=== PATIENT | female | born 1975 | race African-American/Black ===

== ENCOUNTER 2019-02-19 10:57 | Emergency (ER) | payer MEDICAID ==
[2019-02-19 11:18] VITALS: BP 134/80
--- NOTE | 2019-02-19 11:29 | ED Physician Documentation ---
PD HPI SKIN - Stated complaint Stated Complaint: WOUND ON ABD - Chief complaint Chief Complaint: Wound - History obtained from History obtained from: Patient - History of Present Illness Timing - onset: How many days ago (4) Timing - duration: Days (4) Timing - details: Gradual onset, Still present (started draining 2 days ago but still hurting and swollen/red) Location: Abdomen Quality / character: Painful, Discolored (red), Swelling, Draining (for 2 days) Associated symptoms: Myalgias. No: Fever, N/V/D Contributing factors: No: Insect bite /sting, Recent illness Similar symptoms before: Has not had sx before Recently seen: Not recently seen Review of Systems Constitutional: reports: Myalgias. denies: Fever, Chills Nose: denies: Rhinorrhea / runny nose, Congestion Throat: denies: Sore throat Respiratory: denies: Cough GI: denies: Nausea, Vomiting, Diarrhea Skin: reports: Lesions (just the one on the lower abd) PD PAST MEDICAL HISTORY - Past Medical History Past Medical History: Yes Cardiovascular: Hypertension - Past Surgical History Past Surgical History: No - Present Medications Home Medications: Ambulatory Orders Medication Instructions Recorded Confirmed Hydrocodone/Acetaminophen [[place] 1 each PO Q6H PRN #15 tablet 02/19/19 5-325 Tablet] Lidocaine HCl [Lidocaine Plus] 1 applic TP Q2H PRN #15 cream..g. 02/19/19 Mupirocin 1 applic TP TID #15 g 02/19/19 Sulfamethox/Trimeth 800/160 1 each PO BID #14 tablet 02/19/19 [Bactrim Ds 800/160] - Allergies Allergies/Adverse Reactions: Allergies Allergy/AdvReac Type Severity Reaction Status Date / Time No Known Drug Allergies Allergy Verified 02/19/19 11:06 - Social History Does the pt smoke?: No Smoking Status: Never smoker Does the pt drink ETOH?: No Does the pt have substance abuse?: No - Immunizations Immunizations are current?: Yes - POLST Patient has POLST: No PD ED PE NORMAL - Vitals Vital signs reviewed: Yes - General General: Alert and oriented X 3, Well developed/nourished - Cardiac Cardiac: RRR, No murmur - Respiratory Respiratory: Clear bilaterally - Abdomen Abdomen: Normal bowel sounds, Soft, Non distended, No organomegaly, Other (tender in skin and subcut level on lowera bdomen below a skin fold of pannus, with area of induration and small 3-4 mm opening and surrounding redness. No purulence at this time. U/S bedside did not show significant fluid coollection (3 mm sized area). There is inflammation and swelling in the area around the lesion. The surrounding 3-4 cm show area of induration and redness with tenderness. ) Results - Vitals Vitals: Vital Signs - 24 hr 02/19/19 11:04 Temperature 36.5 C Heart Rate 70 Respiratory 16 Rate Blood Pressure 134/80 H O2 Saturation 100 Oxygen O2 Source Room air Departure - Departure Disposition: Home, Self Care Clinical Impression: Cutaneous abscess of abdominal wall Condition: Stable Record reviewed to determine appropriate education?: Yes Instructions: ED Staph Infec Abx Tx Only Prescriptions: Hydrocodone/Acetaminophen [[place] 5-325 Tablet] 1 each PO Q6H PRN #15 tablet PRN Reason: Pain Lidocaine HCl [Lidocaine Plus] 1 applic TP Q2H PRN #15 cream..g. PRN Reason: Pain Mupirocin 1 applic TP TID #15 g Sulfamethox/Trimeth 800/160 [Bactrim Ds 800/160] 1 each PO BID #14 tablet Comments: The abscess appears to be draining adequately to just treat the infection of the tissue and not have to drain it further. Allow it to keep draining on its own. Cleanse the area 2-3 times a day with soap and water and apply mupirocin antibiotic ointment and can also apply lidocaine cream to help with the pain. Use ibuprofen 2-3 times a day and add Tylenol or hydrocodone as needed for pain. Bactrim antibiotic orally for the next week to help with the infection. Recheck if not improving well over the next few days and it should be better within several days to week. Discharge Date/Time: 02/19/19 12:18
[2019-02-19] MEDS ORDERED: SULFAMETH/TRIMETH DS 800/160 MG TABLET PO STA (11:55)
[2019-02-19] MEDS ORDERED: MUPIROCIN 2% OINT 1 GM TOP STA (11:55)
[2019-02-19] MEDS ORDERED: HYDROcod/ACETAM 5/325 MG TABLET PO STA (11:55)
[2019-02-19] MEDS ORDERED: LIDOCAINE JELLY 2% 5 ML TUBE TOP STA (11:55)
== END 2019-02-19 12:18 | disposition home or self-care (01) ==
LOC: ED 10:57
DX: L02.211 Cutaneous abscess of abdominal wall (principal); I10 Essential (primary) hypertension
CPT/HCPCS: 99283; A9270; J3490

== ENCOUNTER 2019-07-06 17:30 | Emergency (ER) | payer MEDICAID ==
[2019-07-06 18:09] LABS: BASOPHILS % (AUTO) 1.1 %; EOSINOPHILS % (AUTO) 0.6 %; HGB - HEMOGLOBIN 13.1 g/dL (12.0-16.0); LYMPHOCYTES # (AUTO) 1.5 10^3/uL (1.5-3.5); LYMPHOCYTES % (AUTO) 42.5 %; MEAN CORPUSCULAR HGB CONC 34.4 g/dL (32.0-36.0); MEAN CORPUSCULAR VOLUME 90.3 fL (81.0-99.0); MEAN PLATELET VOLUME 9.9 fL (7.9-10.8); MONOCYTES # (AUTO) 0.3 10^3/uL (0.0-1.0); MONOCYTES % (AUTO) 8.3 %; NEUTROPHILS # (AUTO) 1.7 10^3/uL (1.5-6.6); NEUTROPHILS % (AUTO) 47.2 %; PLT - PLATELET COUNT 361 10^3/uL (130-450); RED BLOOD COUNT 4.22 10^6/uL (4.20-5.40); WHITE BLOOD COUNT 3.5 x10^3/uL (4.8-10.8)
[2019-07-06 18:12] LABS: ALBUMIN/GLOBULIN RATIO 1.1 (1.0-2.2); BILIRUBIN,TOTAL 1.1 mg/dL (0.2-1.0); CALCIUM 8.6 mg/dL (8.5-10.3); CREATININE 0.8 mg/dL (0.4-1.0); TOTAL PROTEIN 7.8 g/dL (6.7-8.2)
[2019-07-06] MEDS ORDERED: ONDANSETRON ODT 4 MG TABLET TL STA (18:23)
[2019-07-06] MEDS ORDERED: MAG HYDROX/AL HYDROX/SIMETH 30 ML UDC PO STA (18:23)
[2019-07-06] MEDS ORDERED: LIDOCAINE VISCOUS 2% 15 ML UDC MM STA (18:23)
[2019-07-06] MEDS ORDERED: KETOROLAC 30 MG/ML VIAL IVP STA (18:24)
[2019-07-06] MEDS ORDERED: ONDANSETRON 4 MG/2 ML VIAL IVP STA (18:25)
[2019-07-06] MEDS ORDERED: ASPIRIN CHEW 81 MG TABLET PO STA (18:25)
--- NOTE | 2019-07-06 18:25 | ED Physician Documentation ---
PD HPI CHEST PAIN - Stated complaint Stated Complaint: CP, N/V - Chief complaint Chief Complaint: Cardiac - History obtained from History obtained from: Patient - History of Present Illness Timing - onset: Other (2 days ago she started with sharp anterior right sided nonradiating chest pain she started having some nausea and vomiting. She felt like it was gas at first but now is more constant. She is never had this before. Her mom had some heart problems but not until she was in her 70s. Denies shortness of breath.) Review of Systems Ten Systems: 10 systems reviewed and negative Constitutional: reports: Sweats. denies: Fever, Chills Nose: denies: Rhinorrhea / runny nose, Congestion Cardiac: denies: Palpitations, Pedal edema, Calf pain Respiratory: denies: Dyspnea, Cough GI: denies: Abdominal Pain PD PAST MEDICAL HISTORY - Past Medical History Cardiovascular: Hypertension - Past Surgical History Past Surgical History: No - Present Medications Home Medications: Ambulatory Orders Medication Instructions Recorded Confirmed Hydrocodone/Acetaminophen [[place] 1 each PO Q6H PRN #15 tablet 02/19/19 5-325 Tablet] Lidocaine HCl [Lidocaine Plus] 1 applic TP Q2H PRN #15 cream..g. 02/19/19 Mupirocin 1 applic TP TID #15 g 02/19/19 Sulfamethox/Trimeth 800/160 1 each PO BID #14 tablet 02/19/19 [Bactrim Ds 800/160] Ibuprofen [Motrin] 800 mg PO Q8H PRN #30 tablet 07/06/19 Ondansetron Odt [Zofran] 4 mg TL Q6H PRN #10 tablet 07/06/19 - Allergies Allergies/Adverse Reactions: Allergies Allergy/AdvReac Type Severity Reaction Status Date / Time No Known Drug Allergies Allergy Verified 02/19/19 11:06 - Social History Does the pt smoke?: No Smoking Status: Never smoker Does the pt drink ETOH?: No Does the pt have substance abuse?: No - Family History Family history: reports: Non contributory - Immunizations Immunizations are current?: Yes - POLST Patient has POLST: No PD ED PE NORMAL - Vitals Vital signs reviewed: Yes - General General: Alert and oriented X 3 (She appears uncomfortable and retching) - HEENT HEENT: PERRL, EOMI - Neck Neck: Supple, no meningeal sign, No bony TTP - Cardiac Cardiac: RRR, No murmur - Respiratory Respiratory: No respiratory distress, Clear bilaterally - Abdomen Abdomen: Non tender - Back Back: No CVA TTP, No spinal TTP - Derm Derm: Normal color, Warm and dry - Extremities Extremities: No edema, No calf tenderness / cord - Neuro Neuro: Alert and oriented X 3, Normal speech Results - Vitals Vitals: Vital Signs - 24 hr 07/06/19 07/06/19 17:41 19:41 Temperature 37.3 C 36.9 C Heart Rate 76 56 L Respiratory 18 13 Rate Blood Pressure 181/128 H 154/101 H O2 Saturation 100 100 Oxygen O2 Source Room air - EKG (time done) 1742 Rate: Rate (enter#) (68) Rhythm: NSR [place]: Normal Intervals: Normal MA QRS: Normal Ischemia: Normal ST segments Computer interpretation: Agree with computer - Labs Labs: Laboratory Tests 07/06/19 07/06/19 07/06/19 17:54 17:54 17:54 WBC 3.5 L RBC 4.22 Hgb 13.1 Hct 38.1 MCV 90.3 MCH 31.0 MCHC 34.4 RDW 15.0 Plt Count 361 MPV 9.9 Neut # (Auto) 1.7 Lymph # (Auto) 1.5 [place] # (Auto) 0.3 Eos # (Auto) 0.0 Baso # (Auto) 0.0 Absolute Nucleated RBC 0.00 Nucleated RBC % 0.0 D-Dimer Sodium 140 Potassium 3.3 L Chloride 106 Carbon Dioxide 26 Anion Gap 8.0 BUN 16 Creatinine 0.8 Estimated GFR (MDRD) 95 Glucose 122 H Calcium 8.6 Total Bilirubin 1.1 H AST 23 ALT 18 Alkaline Phosphatase 51 Troponin I High Sens 3.0 Total Protein 7.8 Albumin 4.0 Globulin 3.8 Albumin/Globulin Ratio 1.1 Lipase 21 L 07/06/19 17:54 WBC RBC Hgb Hct MCV MCH MCHC RDW Plt Count MPV Neut # (Auto) Lymph # (Auto) [place] # (Auto) Eos # (Auto) Baso # (Auto) Absolute Nucleated RBC Nucleated RBC % D-Dimer 280.2 H Sodium Potassium Chloride Carbon Dioxide Anion Gap BUN Creatinine Estimated GFR (MDRD) Glucose Calcium Total Bilirubin AST ALT Alkaline Phosphatase Troponin I High Sens Total Protein Albumin Globulin Albumin/Globulin Ratio Lipase PD MEDICAL DECISION MAKING - ED course ED course: 43-year-old woman presents with atypical right-sided chest pain, ACS fairly unlikely given the right lack of risk factors, normal EKG, negative high- sensitivity troponin. D-dimer was slightly positive followed by CT angiography which was negative. Departure - Departure Disposition: 01 Home, Self Care Clinical Impression: Chest wall pain Condition: Good Record reviewed to determine appropriate education?: Yes Instructions: ED Chest Pain Atypical Unkn Cause Prescriptions: Ibuprofen [Motrin] 800 mg PO Q8H PRN #30 tablet PRN Reason: PAIN &/OR FEVER Ondansetron Odt [Zofran] 4 mg TL Q6H PRN #10 tablet PRN Reason: Nausea / Vomiting Comments: Call your doctor to arrange a follow-up appointment, make the next available appointment. In the interim, return anytime if worse or if new symptoms develop. Your blood pressure was elevated today on check into the emergency department. This does not mean that you have hypertension, it is a common phenomenon to come to the emergency department and have elevated blood pressure. I recommend that you see your primary care physician within the week to have it rechecked when you are feeling better.
--- NOTE | 2019-07-06 19:16 | XRAY Report ---
Reason: chest pain Procedure Date: 07/06/2019 Accession Number: [id number] / [id number] Procedure: XR - Chest 2 View X-Ray CPT Code: 39989 Final Report FULL RESULT: EXAM: CHEST RADIOGRAPHY EXAM DATE: 07/06/2019 06:44 PM. CLINICAL HISTORY: Chest pain. COMPARISON: None. TECHNIQUE: 2 views. FINDINGS: Lungs/Pleura: No focal opacities evident. No pleural effusion. No pneumothorax. Normal volumes. Mediastinum: Heart and mediastinal contours are unremarkable. Other: None. IMPRESSION: Normal 2-view chest radiography. RADIA
[2019-07-06] MEDS ORDERED: IOVERSOL 320 100 ML VIAL IVP ONE ×2 (19:55→21:10)
--- NOTE | 2019-07-06 20:35 | CT Report ---
Reason: PE protocol, CP high dimer Procedure Date: 07/06/2019 Accession Number: [id number] / [id number] Procedure: CT - ANGIO CHEST W/WO CPT Code: Final Report FULL RESULT: EXAM: CT ANGIOGRAM CHEST EXAM DATE: 07/06/2019 08:09 PM. CLINICAL HISTORY: PE protocol, CP high dimer. COMPARISON: None. TECHNIQUE: Routine helical imaging was performed through the chest in the pulmonary arterial phase. IV Contrast: CE. Reconstructions: Coronal 3-D MIP reconstructions.Sagittal and coronal. In accordance with CT protocol optimization, one or more of the following dose reduction techniques were utilized for this exam: automated exposure control, adjustment of mA and/or KV based on patient size, or use of iterative reconstructive technique. FINDINGS: Pulmonary Arteries: Diagnostic quality: Adequate through the segmental arteries. No evidence for acute or chronic pulmonary emboli. RV/LV is within normal limits. There is no interventricular septal bowing. There is no reflux of contrast material in the IVC. Lungs/Pleura: No consolidation, nodules, or edema. No effusions or pneumothorax. Mediastinum: Normal. No cardiac enlargement or adenopathy. Thoracic Aorta: Unremarkable. Upper Abdomen: A subcentimeter hypodense lesions in the right lobe of liver, too small to characterize. IMPRESSION: Normal pulmonary CT angiogram. No pulmonary emboli. RADIA
[2019-07-06 20:47] VITALS: BP 149/93
== END 2019-07-06 20:51 | disposition home or self-care (01) ==
LOC: ED 17:30
DX: R07.89 Other chest pain (principal); R79.89 Other specified abnormal findings of blood chemistry; I10 Essential (primary) hypertension
CPT/HCPCS: 36415; 71046; 71275; 80053; 83690; 84484; 85025; 85379; 93005; 96374; 96375; 99284; A9270; Q9967

== ENCOUNTER 2019-09-29 09:22 | Outpatient (CLI) | payer MEDICAID ==
[2019-09-29 12:22] LABS: BASOPHILS % (AUTO) 0.6 %; EOSINOPHILS % (AUTO) 0.9 %; HGB - HEMOGLOBIN 12.5 g/dL (12.0-16.0); LYMPHOCYTES # (AUTO) 1.1 10^3/uL (1.5-3.5); MEAN CORPUSCULAR HEMOGLOBIN 30.3 pg (27.0-31.0); MEAN CORPUSCULAR HGB CONC 33.7 g/dL (32.0-36.0); MEAN PLATELET VOLUME 10.7 fL (7.9-10.8); MONOCYTES # (AUTO) 0.4 10^3/uL (0.0-1.0); MONOCYTES % (AUTO) 11.3 %; NEUTROPHILS # (AUTO) 1.7 10^3/uL (1.5-6.6); NEUTROPHILS % (AUTO) 51.9 %; PLT - PLATELET COUNT 317 10^3/uL (130-450); RED BLOOD COUNT 4.12 10^6/uL (4.20-5.40); RED CELL DISTRIBUTION WIDTH 13.9 % (12.0-15.0); WHITE BLOOD COUNT 3.3 x10^3/uL (4.8-10.8)
[2019-09-29 12:51] LABS: BUN - BLOOD UREA NITROGEN 8 mg/dL (6-20); CALCIUM 8.8 mg/dL (8.5-10.3); CARBON DIOXIDE - CO2 27 mmol/L (21-32); CHLORIDE 101 mmol/L (101-111); CHOL/HDL RATIO 3.9 (<4.4); CHOLESTEROL 206 mg/dL; CREATININE 0.6 mg/dL (0.4-1.0); GFR - MDRD 132 (>89); GLUCOSE 106 mg/dL (70-100); HDL CHOLESTEROL 53 mg/dL; LDL CHOLESTEROL,CALCULATED 135 mg/dL; LDL/HDL RATIO 2.5 (<4.4); SODIUM 136 mmol/L (135-145); VLDL CHOLESTEROL 18 mg/dL
== END 2019-09-29 23:59 | disposition home or self-care (01) ==
LOC: LAB.N 09:22
PROVIDERS: ATTEND Physician Assistant Medical
DX: Z00.00 Encounter for general adult medical examination without abnormal findings (principal); Z82.49 Family history of ischemic heart disease and other diseases of the circulatory system; Z83.3 Family history of diabetes mellitus; I10 Essential (primary) hypertension
CPT/HCPCS: 36415; 80048; 80061; 82306; 83721; 84443; 85025

== ENCOUNTER 2019-10-03 21:46 | Emergency (ER) | payer MEDICAID ==
--- NOTE | 2019-10-03 23:13 | ED Physician Documentation ---
History of Present Illness - Stated complaint Stated Complaint: LT LOWER BACK INJ - Chief complaint Chief Complaint: Trauma Ch/Bk - History obtained from History obtained from: Patient (The patient is a 44-year-old female who presents with a chief complaint of left lower back pain that radiates down to her left leg. She reports the injury happened 10 days ago and she shows up to the emergency department for evaluation Tonight.The patient denies any bowel or bladder dysfunction she denies any saddle anesthesia she denies any urinary retention she denies any history of spinal surgery or IV drug abuse.The patient reports that she tried ibuprofen but it is not working.) Review of Systems Constitutional: reports: Reviewed and negative Eyes: reports: Reviewed and negative Ears: reports: Reviewed and negative Nose: reports: Reviewed and negative Throat: reports: Reviewed and negative Cardiac: reports: Reviewed and negative Respiratory: reports: Reviewed and negative GI: reports: Reviewed and negative : reports: Reviewed and negative Skin: reports: Reviewed and negative Musculoskeletal: reports: Back pain Neurologic: reports: Reviewed and negative Psychiatric: reports: Reviewed and negative Endocrine: reports: Reviewed and negative Immunocompromised: reports: Reviewed and negative PD PAST MEDICAL HISTORY - Past Medical History Past Medical History: Yes Cardiovascular: Hypertension - Past Surgical History Past Surgical History: No - Present Medications Home Medications: Ambulatory Orders Medication Instructions Recorded Confirmed Hydrocodone/Acetaminophen [[place] 1 each PO Q6H PRN #15 tablet 02/19/19 5-325 Tablet] Lidocaine HCl [Lidocaine Plus] 1 applic TP Q2H PRN #15 cream..g. 02/19/19 Mupirocin 1 applic TP TID #15 g 02/19/19 Sulfamethox/Trimeth 800/160 1 each PO BID #14 tablet 02/19/19 [Bactrim Ds 800/160] Ibuprofen [Motrin] 800 mg PO Q8H PRN #30 tablet 07/06/19 Ondansetron Odt [Zofran] 4 mg TL Q6H PRN #10 tablet 07/06/19 - Allergies Allergies/Adverse Reactions: Allergies Allergy/AdvReac Type Severity Reaction Status Date / Time No Known Drug Allergies Allergy Verified 10/03/19 21:59 - Social History Does the pt smoke?: No Smoking Status: Never smoker Does the pt drink ETOH?: No Does the pt have substance abuse?: No - Immunizations Immunizations are current?: Yes - POLST Patient has POLST: No PD ED PE NORMAL - Vitals Vital signs reviewed: Yes - General General: Alert and oriented X 3, No acute distress - HEENT HEENT: PERRL - Neck Neck: Supple, no meningeal sign - Cardiac Cardiac: RRR, No murmur, Strong equal pulses - Respiratory Respiratory: Clear bilaterally - Abdomen Abdomen: Normal bowel sounds, Soft, Non tender, Non distended - Derm Derm: Warm and dry - Extremities Extremities: No deformity, Other (PositiveStraight leg test of the left lower extremity.Sensations intact to light touch strength is 5 out of 5 proprioception is intact to the great toe reflexes of the Achilles and patellar 2+ and symmetric.Normal gait she can stand on her heels and her toes.There is no midline tenderness to palpation of the spine.) - Neuro Neuro: Alert and oriented X 3, tapper supervisor 2-12 intact, No motor deficit, No sensory deficit, Normal speech, Other (PositiveStraight leg test of the left lower extremity.Sensations intact to light touch strength is 5 out of 5 proprioception is intact to the great toe reflexes of the Achilles and patellar 2+ and symmetric.Normal gait she can stand on her heels and her toes.There is no midline tenderness to palpation of the spine.) - Psych Psych: Normal mood, Normal affect Results - Vitals Vitals: Vital Signs - 24 hr 10/03/19 21:56 Temperature 36.6 C Heart Rate 95 Respiratory 16 Rate Blood Pressure 126/86 H O2 Saturation 99 Oxygen O2 Source Room air PD MEDICAL DECISION MAKING - ED course Complexity details: other (History and exam are consistent with nonemergent [id number] back pain.) Departure - Departure Disposition: 01 Home, Self Care Clinical Impression: Back pain Qualifiers: Back pain location: low back pain Chronicity: acute Back pain laterality: left Sciatica presence: with sciatica Sciatica laterality: sciatica of left side Qualified Code(s): M54.42 - Lumbago with sciatica, left side Condition: Good Instructions: Back Pain Relieve Follow-Up: Mati Fernández PA-C [Primary Care Provider] - Tomorrow
[2019-10-03] MEDS ORDERED: diazePAM INJ 5 MG/ML SYRINGE IVP STA (23:14)
[2019-10-03] MEDS ORDERED: DEXAMETHASONE 10 MG/ML VIAL IM STA (23:14)
[2019-10-03] MEDS ORDERED: HYDROcod/ACET 5/325 Prepack 4 PO STA (23:52)
[2019-10-04 00:07] VITALS: BP 117/84
== END 2019-10-04 00:07 | disposition home or self-care (01) ==
LOC: ED 21:46
DX: M54.42 Lumbago with sciatica, left side (principal); I10 Essential (primary) hypertension
CPT/HCPCS: 96374; 99284

== ENCOUNTER 2019-11-04 12:36 | Outpatient (CLI) | payer MEDICAID | END 2019-11-04 12:37 | disposition critical access hospital (66) | LOC: EMS 12:36 | PROVIDERS: ATTEND Surgery | DX: R11.2 Nausea with vomiting, unspecified (principal); R20.0 Anesthesia of skin | CPT/HCPCS: A0425; A0427; A0999 ==

== ENCOUNTER 2019-11-04 12:55 | Emergency (ER) | payer MEDICAID ==
[2019-11-04] MEDS ORDERED: KETOROLAC 30 MG/ML VIAL IVP STA (13:08)
[2019-11-04] MEDS ORDERED: ONDANSETRON 4 MG/2 ML VIAL IVP STA (13:08)
[2019-11-04] MEDS ORDERED: SODIUM CHLORIDE 0.9% 1,000 ML IV ONE ×3 (13:08→16:33)
--- NOTE | 2019-11-04 13:12 | ED Physician Documentation ---
PD HPI NVD - Stated complaint Stated Complaint: N/V - Chief complaint Chief Complaint: Abd Pain - History obtained from History obtained from: Patient, EMS - History of Present Illness Timing - onset: How many days ago (4) Timing - duration: Days (4) Timing - details: Gradual onset, Still present Associated symptoms: Abdominal pain Improved by: Laying still Worsened by: Position, Palpation Similar symptoms before: No diagnosis Recently seen: Not recently seen - Additonal information Additional information: 41-year-old female with a history of hypertension has developed vomiting with nausea about 4 days ago. She has been constipated as well. She developed lower abdominal pain associated with this. She has pain mostly in the right lower quadrant. She has been trying to drink water and she has been vomiting frequently. She is now developed some numbness on her right cheek in her fingertips. Review of Systems Constitutional: denies: Fever Eyes: denies: Decreased vision Ears: denies: Ear pain Nose: denies: Rhinorrhea / runny nose, Congestion Throat: denies: Sore throat Cardiac: denies: Chest pain / pressure, Palpitations Respiratory: denies: Dyspnea, Cough GI: reports: Abdominal Pain, Nausea, Vomiting, Constipation : denies: Dysuria, Frequency PD PAST MEDICAL HISTORY - Past Medical History Cardiovascular: Hypertension - Past Surgical History Past Surgical History: No - Present Medications Home Medications: Ambulatory Orders Medication Instructions Recorded Confirmed Hydrocodone/Acetaminophen [[place] 1 each PO Q6H PRN #15 tablet 02/19/19 5-325 Tablet] Lidocaine HCl [Lidocaine Plus] 1 applic TP Q2H PRN #15 cream..g. 02/19/19 Mupirocin 1 applic TP TID #15 g 02/19/19 Sulfamethox/Trimeth 800/160 1 each PO BID #14 tablet 02/19/19 [Bactrim Ds 800/160] Ibuprofen [Motrin] 800 mg PO Q8H PRN #30 tablet 07/06/19 Ondansetron Odt [Zofran] 4 mg TL Q6H PRN #10 tablet 07/06/19 - Allergies Allergies/Adverse Reactions: Allergies Allergy/AdvReac Type Severity Reaction Status Date / Time No Known Drug Allergies Allergy Unverified 11/04/19 12:58 - Social History Does the pt smoke?: No Smoking Status: Never smoker Does the pt drink ETOH?: No Does the pt have substance abuse?: No - Immunizations Immunizations are current?: Yes - POLST Patient has POLST: No PD ED PE NORMAL - Vitals Vital signs reviewed: Yes (tachy and hypertensive) - General General: Alert and oriented X 3, Well developed/nourished, Other (44 y/o female is withdrawn and appears to be in pain, curled in the position. ) - HEENT HEENT: Atraumatic, PERRL, EOMI - Neck Neck: Supple, no meningeal sign - Cardiac Cardiac: No murmur, Other (tachy to 110) - Respiratory Respiratory: No respiratory distress, Clear bilaterally - Abdomen Abdomen: Soft, Other (RLQ tenderness with garding and referred tenderness. Pain on the lower abdomen is past the midline with garding. There is right upper quadrant tenderness that is mild in comparison. ) - Back Back: No CVA TTP, No spinal TTP - Derm Derm: Normal color, Warm and dry, No rash - Extremities Extremities: No deformity, No edema, No calf tenderness / cord - Neuro Neuro: Alert and oriented X 3, clean energy policy analyst 2-12 intact, No motor deficit, No sensory deficit, Normal speech Eye Opening: Spontaneous Motor: Obeys Commands Verbal: Oriented GCS Score: 15 - Psych Psych: Normal mood, Normal affect Results - Vitals Vitals: Vital Signs - 24 hr 11/04/19 11/04/19 11/04/19 12:58 14:54 16:55 Temperature 36.8 C Heart Rate 102 H 71 81 Respiratory 18 16 14 Rate Blood Pressure 127/95 H 101/64 127/92 H O2 Saturation 97 96 96 11/04/19 19:18 Temperature Heart Rate 91 Respiratory 18 Rate Blood Pressure 121/92 H O2 Saturation 96 Oxygen O2 Source Room air - Labs Labs: Laboratory Tests 11/04/19 11/04/19 11/04/19 13:18 13:18 13:18 WBC 3.5 L RBC 4.18 L Hgb 13.0 Hct 36.7 L MCV 87.8 MCH 31.1 H MCHC 35.4 RDW 14.6 Plt Count 396 MPV 9.4 Neut # (Auto) 1.2 L Lymph # (Auto) 1.9 [place] # (Auto) 0.4 Eos # (Auto) 0.0 Baso # (Auto) 0.0 Absolute Nucleated RBC 0.00 Nucleated RBC % 0.0 Sodium 138 Potassium 2.8 L Chloride 103 Carbon Dioxide 22 Anion Gap 13.0 BUN 10 Creatinine 0.7 Estimated GFR (MDRD) 111 Glucose 143 H Lactic Acid 2.4 H Calcium 8.4 L Total Bilirubin 0.4 AST 36 ALT 24 Alkaline Phosphatase 77 Total Protein 8.2 Albumin 3.9 Globulin 4.3 H Albumin/Globulin Ratio 0.9 L Lipase 24 Urine Color Urine Clarity Urine pH Ur Specific [place] Urine Protein Urine Glucose (UA) Urine Ketones Urine Occult Blood Urine Nitrite Urine Bilirubin Urine Urobilinogen Ur Leukocyte Esterase Urine RBC Urine WBC Ur Squamous Epith Cells Urine Bacteria Ur Microscopic Review Urine Culture Comments Urine HCG, Qual 11/04/19 17:15 WBC RBC Hgb Hct MCV MCH MCHC RDW Plt Count MPV Neut # (Auto) Lymph # (Auto) [place] # (Auto) Eos # (Auto) Baso # (Auto) Absolute Nucleated RBC Nucleated RBC % Sodium Potassium Chloride Carbon Dioxide Anion Gap BUN Creatinine Estimated GFR (MDRD) Glucose Lactic Acid Calcium Total Bilirubin AST ALT Alkaline Phosphatase Total Protein Albumin Globulin Albumin/Globulin Ratio Lipase Urine Color YELLOW Urine Clarity CLEAR Urine pH 5.5 Ur Specific [place] <=1.005 Urine Protein 30 H Urine Glucose (UA) NEGATIVE Urine Ketones NEGATIVE Urine Occult Blood TRACE-LYSE Urine Nitrite NEGATIVE Urine Bilirubin NEGATIVE Urine Urobilinogen 0.2 (NORMAL) Ur Leukocyte Esterase NEGATIVE Urine RBC None Seen Urine WBC 0-3 Ur Squamous Epith Cells FEW Squamous Urine Bacteria None Seen Ur Microscopic Review INDICATED Urine Culture Comments NOT INDICATED Urine HCG, Qual NEGATIVE - Rads (name of study) T ab/pel w Radiology: Prelim report reviewed (Impression: No bowel obstruction no evidence of colitis, diverticulitis, or appendicitis.), EMP read indepedently, See rad report CT head w/o Radiology: Prelim report reviewed (Impression: No acute intracranial CT abnormality.), EMP read indepedently, See rad report CT sinuses Radiology: Prelim report reviewed (Impression: 1. Age-indeterminate fracture of the right lamina appreciated (series 3 image 69), with herniation of the orbital fat through the bony defect (for example series 5 image 45). 2 No evidence of acute sinusitis. Mild mucosal thickening of the maxillary antra bilaterally. The remaining paranasal sinuses are clear. The drainage pathways bilaterally are patent. 3 [place] bulla of the left middle turbinate.), EMP read indepedently, See rad report PD MEDICAL DECISION MAKING - ED course Complexity details: reviewed old records, reviewed results, re-evaluated patient, considered differential, d/w patient ED course: 44-year-old female with acute nausea and vomiting x4 days is dehydrated on arrival to the emergency department and she is complaining of some numbness to her right cheek. She has some suprapubic abdominal pain and right lower quadrant abdominal pain a CT scan is obtained demonstrating no evidence of a bnormality in the abdomen or pelvis.Blood work shows electrolyte abnormality of a low potassium and she is administered potassium intravenously as well as fluid. She is found to be dehydrated. She iis really dehydrated and it took 3 liters of saline to get urine. Her abdominal pain is now resolved. Her affect and interaction are re-animated and she feels improved but still has some right cheek numbness. There is no motor component and no other peripheral findings. I thought it important to rule out acute sinusitis as a cause of numbness to the cheek and this was not present on the scan. She has has an old trauma to the right orbit and this shows on the scan but I cannot correlate it with cheek numbness. This is now an isolated finding on a patient that was profoundly dehydrated and hypokalemic and this has been addressed and she is much improved. She will follow up as an outpatient for the numbness. Departure - Departure Disposition: 01 Home, Self Care Clinical Impression: Gastroenteritis, Dehydration, Facial paresthesia Instructions: ED Dehydration, ED Gastroenteritis Viral, ED Paraesthesias Follow-Up: Mati Fernández PA-C [Primary Care Provider] - Comments: Today you were profoundly dehydrated and had a low potassium. With treatment your symptoms are improved and we expect continued improvement. We expect her facial paresthesia to improve over the next 2 to 3 days. Forms: Activity restrictions Discharge Date/Time: 11/04/19 19:23
[2019-11-04] MEDS ORDERED: IOVERSOL 320 100 ML VIAL IVP ONE ×2 (13:17→14:22)
[2019-11-04 13:30] LABS: BASOPHILS % (AUTO) 0.6 %; EOSINOPHILS % (AUTO) 0.6 %; LYMPHOCYTES # (AUTO) 1.9 10^3/uL (1.5-3.5); LYMPHOCYTES % (AUTO) 54.7 %; MEAN CORPUSCULAR HEMOGLOBIN 31.1 pg (27.0-31.0); MEAN CORPUSCULAR HGB CONC 35.4 g/dL (32.0-36.0); MEAN CORPUSCULAR VOLUME 87.8 fL (81.0-99.0); MEAN PLATELET VOLUME 9.4 fL (7.9-10.8); MONOCYTES # (AUTO) 0.4 10^3/uL (0.0-1.0); MONOCYTES % (AUTO) 9.9 %; NEUTROPHILS # (AUTO) 1.2 10^3/uL (1.5-6.6); NEUTROPHILS % (AUTO) 33.9 %; PLT - PLATELET COUNT 396 10^3/uL (130-450); RED BLOOD COUNT 4.18 10^6/uL (4.20-5.40); RED CELL DISTRIBUTION WIDTH 14.6 % (12.0-15.0); WHITE BLOOD COUNT 3.5 x10^3/uL (4.8-10.8)
[2019-11-04 13:39] LABS: ALBUMIN 3.9 g/dL (3.2-5.5); ALBUMIN/GLOBULIN RATIO 0.9 (1.0-2.2); BILIRUBIN,TOTAL 0.4 mg/dL (0.2-1.0); CALCIUM 8.4 mg/dL (8.5-10.3); CREATININE 0.7 mg/dL (0.4-1.0); TOTAL PROTEIN 8.2 g/dL (6.7-8.2)
--- NOTE | 2019-11-04 14:41 | CT Report ---
Reason: RLQ pain Procedure Date: 11/04/2019 Accession Number: [id number] / [id number] Procedure: CT - Abdomen/Pelvis W CPT Code: Final Report FULL RESULT: EXAM: CT ABDOMEN AND PELVIS EXAM DATE: 11/04/2019 02:19 PM. CLINICAL HISTORY: Right lower quadrant pain. COMPARISONS: CHEST ANGIO 07/06/2019 8:04 PM. TECHNIQUE: Routine helical CT imaging was performed through the abdomen and pelvis. IV contrast: [id number]. Enteric contrast: No. Reconstructions: Coronal and sagittal. In accordance with CT protocol optimization, one or more of the following dose reduction techniques were utilized for this exam: automated exposure control, adjustment of mA and/or KV based on patient size, or use of iterative reconstructive technique. FINDINGS: Lung Bases: Unremarkable. Liver: Stable subcentimeter focus posterior right hepatic lobe segment 7, too small to characterize. No intrahepatic biliary ductal dilatation. Gallbladder/Bile Ducts: Unremarkable. Spleen: Normal. Pancreas: Normal. Adrenal Glands: Normal. Kidneys: Normal. No masses or hydronephrosis. Peritoneal Cavity/Bowel: No bowel obstruction, free air or free fluid. No evidence of diverticulitis, colitis, or appendicitis. No free air or free fluid. No pathologically enlarged lymph nodes. Pelvic Organs: The contour of the uterus and urinary bladder are within normal limits. No abnormal cystic or mass lesions identified in either adnexa. Vasculature: No aneurysms or other significant abnormality. Bones: No significant abnormality. Other: 1 cm small dermal fluid collection at the anterior midline lower pelvis, suggests a sebaceous cyst. IMPRESSION: No bowel obstruction. No evidence of colitis, diverticulitis, or appendicitis. [facility]
[2019-11-04] MEDS: POTASSIUM CHLOR 10 MEQ/100 ML 10 MEQ/100 ML BAG IV SCH ×2 (15:46→16:46)
--- NOTE | 2019-11-04 16:05 | CT Report ---
Reason: headache and R facial numbness Procedure Date: 11/04/2019 Accession Number: [id number] / [id number] Procedure: CT - HEAD WO CPT Code: Final Report FULL RESULT: EXAM: CT HEAD EXAM DATE: 11/04/2019 03:43 PM. CLINICAL HISTORY: Headache and R facial numbness. COMPARISON: ABDOMEN/PELVIS W/ 11/04/2019 2:10 PM. TECHNIQUE: Multiaxial CT images were obtained from the foramen magnum to the vertex. Reformats: Sagittal and coronal. IV contrast: None. In accordance with CT protocol optimization, one or more of the following dose reduction techniques were utilized for this exam: automated exposure control, adjustment of mA and/or KV based on patient size, or use of iterative reconstructive technique. FINDINGS: Parenchyma: No intraparenchymal hemorrhage. No evidence of mass, midline shift, or CT findings of infarction. Medley-white differentiation is distinct. Extraaxial Spaces: There is residual intravenous contrast. No subdural or epidural collections identified. Ventricles: Normal in size and position. Sinuses and Orbits: Imaged paranasal sinuses, orbits, and mastoids show no significant abnormality. Bones: No evidence of fracture or calvarial defect. Other: None. IMPRESSION: No acute intracranial CT abnormality. [facility]
[2019-11-04] MEDS ORDERED: HYDROmorphone 1 MG/ML CARPUJECT IVP STA (16:33)
[2019-11-04] MEDS ORDERED: POTASSIUM CHLORIDE 20 MEQ TABLET PO STA ×2 (16:34→18:42)
[2019-11-04 17:33] LABS: BILIRUBIN,URINE NEGATIVE (NEGATIVE); GLUCOSE, URINE (UA) NEGATIVE (NEGATIVE); KETONES,URINE (UA) NEGATIVE (NEGATIVE); LEUKOCYTE ESTERASE, URINE NEGATIVE (NEGATIVE); NITRITE,URINE NEGATIVE (NEGATIVE); OCCULT BLOOD,URINE TRACE-LYSE (NEGATIVE); PH,URINE 5.5 PH (5.0-7.5); PROTEIN,URINE 30 mg/dL (NEGATIVE); UROBILINOGEN,URINE 0.2 (NORMAL) E.U./dL (NORMAL)
[2019-11-04 17:38] LABS: CLARITY,URINE CLEAR (CLEAR); HCG UR QUAL NEGATIVE
[2019-11-04] MEDS ORDERED: DEXAMETHASONE 10 MG/ML VIAL IVP STA (17:42)
[2019-11-04 17:57] LABS: BACTERIA,URINE None Seen /HPF (None Seen); RBC,URINE None Seen /HPF (0-5); SQUAMOUS EPITHELIAL CELL,UR FEW Squamous (<= Few)
--- NOTE | 2019-11-04 18:34 | CT Report ---
Reason: right facial numbness max sinus tenderness Procedure Date: 11/04/2019 Accession Number: [id number] / [id number] Procedure: CT - Sinuses CPT Code: Final Report FULL RESULT: EXAM: CT SINUS EXAM DATE: 11/04/2019 06:07 PM. HISTORY: 44-year-old female. Right facial numbness max sinus tenderness. COMPARISONS: HEAD W/O 11/04/2019 3:36 PM. TECHNIQUE: Routine multi-axial CT imaging performed through the sinuses. Iodinated IV contrast: None. Reconstructions: Multiplanar reformats. In accordance with CT protocol optimization, one or more of the following dose reduction techniques were utilized for this exam: automated exposure control, adjustment of mA and/or KV based on patient size, or use of iterative reconstructive technique. FINDINGS: RIGHT Frontal: Normal. Ethmoid: Normal. Maxillary: Mild mucosal thickening. Sphenoid: Normal. Drainage Pathways: The frontal recess, ostiomeatal complex and sphenoethmoidal recess are patent and normal. LEFT Frontal: Normal. Ethmoid: Normal. Maxillary: Mild mucosal thickening. Sphenoid: Normal. Drainage Pathways: The frontal recess, ostiomeatal complex and sphenoethmoidal recess are patent and normal. Nasal Cavity: [place] bullosa of the left middle turbinate. No mass or significant anatomic abnormality evident. Osseous Structures: Age indeterminate fracture of the right lamina papyracea (series 3 image 69), with herniation of the orbital fat through the bony defect (for example series 5 image 45). Orbits: Unremarkable. Other: None. IMPRESSION: 1. Age indeterminate fracture of the right lamina papyracea (series 3 image 69), with herniation of the orbital fat through the bony defect (for example series 5 image 45). 2. No evidence of acute sinusitis. Mild mucosal thickening of the maxillary antra bilaterally. The remaining paranasal sinuses are clear. The drainage pathways bilaterally are patent. 3. [place] bullosa of the left middle turbinate. [facility]
[2019-11-04 19:18] VITALS: BP 121/92
== END 2019-11-04 19:23 | disposition home or self-care (01) ==
LOC: EDUNIT# → ED 12:55
DX: K52.9 Noninfective gastroenteritis and colitis, unspecified (principal); E86.0 Dehydration; E87.6 Hypokalemia; R20.2 Paresthesia of skin; I10 Essential (primary) hypertension
CPT/HCPCS: 36415; 70450; 70486; 74177; 80053; 81001; 81025; 83605; 83690; 85025; 96361; 96365; 96366; 96375; 99284; 99285; A9270; J1170; Q9967; 81003; 87086

== ENCOUNTER 2019-11-09 09:18 | Outpatient (CLI) | payer MEDICAID ==
[2019-11-09 12:04] LABS: BASOPHILS % (AUTO) 0.2 %; EOSINOPHILS # (AUTO) 0.1 10^3/uL (0.0-0.7); EOSINOPHILS % (AUTO) 1.4 %; HGB - HEMOGLOBIN 12.6 g/dL (12.0-16.0); LYMPHOCYTES # (AUTO) 2.1 10^3/uL (1.5-3.5); LYMPHOCYTES % (AUTO) 49.7 %; MEAN CORPUSCULAR HEMOGLOBIN 30.4 pg (27.0-31.0); MEAN CORPUSCULAR HGB CONC 34.3 g/dL (32.0-36.0); MEAN CORPUSCULAR VOLUME 88.4 fL (81.0-99.0); MEAN PLATELET VOLUME 10.4 fL (7.9-10.8); MONOCYTES # (AUTO) 0.3 10^3/uL (0.0-1.0); MONOCYTES % (AUTO) 6.3 %; NEUTROPHILS # (AUTO) 1.8 10^3/uL (1.5-6.6); NEUTROPHILS % (AUTO) 41.5 %; PLT - PLATELET COUNT 292 10^3/uL (130-450); RED BLOOD COUNT 4.15 10^6/uL (4.20-5.40); RED CELL DISTRIBUTION WIDTH 15.2 % (12.0-15.0); WHITE BLOOD COUNT 4.3 x10^3/uL (4.8-10.8)
[2019-11-09 12:22] LABS: CALCIUM 8.6 mg/dL (8.5-10.3); CREATININE 0.7 mg/dL (0.4-1.0)
== END 2019-11-09 23:59 | disposition home or self-care (01) ==
LOC: LAB.N 09:18
PROVIDERS: ATTEND Physician Assistant Medical
DX: E86.0 Dehydration (principal); K52.9 Noninfective gastroenteritis and colitis, unspecified
CPT/HCPCS: 36415; 80048; 85025

== ENCOUNTER 2019-11-30 14:23 | Outpatient (CLI) | payer MEDICAID ==
--- NOTE | 2019-12-01 03:35 | XRAY Report ---
Reason: CONTUSION OF RIGHT FOOT Procedure Date: 11/30/2019 Accession Number: [id number] / [id number] Procedure: [facility] - Foot 3 View RT CPT Code: Final Report FULL RESULT: EXAM: RIGHT FOOT RADIOGRAPHY EXAM DATE: 11/30/2019 02:23 PM. CLINICAL HISTORY: CONTUSION OF RIGHT FOOT. Pain and swelling. COMPARISON: None. TECHNIQUE: 3 views. FINDINGS: Bones: No acute fracture seen. Joints: No dislocation. Joints appear intact. Soft Tissues: Mild soft tissue swelling. IMPRESSION: 1. No acute fracture or dislocation seen. 2. Soft tissue swelling. [facility]
== END 2019-11-30 23:59 | disposition home or self-care (01) ==
LOC: DI.WCP 14:23
PROVIDERS: ATTEND Physician Assistant Medical
DX: S90.31XA Contusion of right foot, initial encounter (principal)

== ENCOUNTER 2019-12-07 09:42 | Outpatient (CLI) | payer OTHER, MEDICAID ==
[2019-12-07 13:18] LABS: HGB - HEMOGLOBIN 12.4 g/dL (12.0-16.0); MEAN CORPUSCULAR HEMOGLOBIN 30.9 pg (27.0-31.0); MEAN CORPUSCULAR HGB CONC 33.2 g/dL (32.0-36.0); MEAN PLATELET VOLUME 11.1 fL (7.9-10.8); RED BLOOD COUNT 4.01 10^6/uL (4.20-5.40); RED CELL DISTRIBUTION WIDTH 16.2 % (12.0-15.0); WHITE BLOOD COUNT 4.5 x10^3/uL (4.8-10.8)
[2019-12-07 13:37] LABS: RHEUMATOID FACTOR NEGATIVE (Negative)
[2019-12-07 13:50] LABS: URIC ACID 9.2 mg/dL (2.6-7.2)
[2019-12-09 09:55] LABS: ANA SCREEN NEGATIVE (NEGATIVE)
== END 2019-12-07 23:59 | disposition home or self-care (01) ==
LOC: LAB.WCP 09:42
PROVIDERS: ATTEND Physician Assistant Medical
DX: S90.31XA Contusion of right foot, initial encounter (principal)
CPT/HCPCS: 36415; 82306; 84550; 85027; 85651; 86038; 86140; 86200; 86430